=== PATIENT | female | born 1970 | race Caucasian/White ===

== ENCOUNTER 2024-12-03 22:03 | Emergency (ER) | payer MEDICAID, SELFPAY ==
[2024-12-03 22:05] VITALS: BMI 22.7
[2024-12-03 22:30] VITALS: BP 115/70; PULSE 93; RESP 18; TEMP 36.9; O2SAT 95
--- NOTE | 2024-12-03 22:37 | EDNOTE_ITS ---
<Statement entered by Roberta Barger MD - 12/05/24 18:57> As co-signing physician, I was present and available for consult prn. I concur with the plan and care as documented by the midlevel provider. ED Wound/Laceration-RME/HPI General Chief Complaint: Wound/Laceration Stated Complaint: LAC TO TOP OF 2ND 3RD ADN 4TH FINGERS Time Seen by Provider: 12/03/24 22:36 Arrival date/time: 12/03/24 22:03 RME / HPI RME / HPI narrative: 54-year-old female patient was brought in for evaluation regarding multiple lacerations to the right fingers incidental happened few minutes prior to ER visit as laceration to the dorsal aspect of the 2nd, 3rd and 4th finger and palmar aspect of the 2nd and 4th finger severity mild. Patient is able to bend and extend the finger without any limitation. Patient will not tell me what happened. She does not want anyone in trouble. Denies any other complaints Related Data Allergies Allergy/AdvReac Type Severity Reaction Status Date / Time prochlorperazine Allergy Unknown IT MADE Verified 12/03/24 22:08 ME CLOSTRAPHOBIC Review of Systems Review of Systems Narrative Review of Systems: Review of system reviewed and within normal limits except mentioned in HPI ED Exam Narrative Physical exam: VITAL SIGNS: Reviewed. GENERAL APPEARANCE: Alert and interactive, follows commands, no acute distress, HEAD AND FACE: Non-traumatic. ENT: PERRL, pink conjunctivitis, eyelid no trauma, Mucous membrane moist. NECK: Supple, nontender, no nuchal rigidity. CHEST: No tenderness, no crepitus, no paradoxical movement, no retractions. LUNGS: Clear, well ventilated, symmetric, no rales, no wheezing, no ronchi, no stridor, good breath sounds bilaterally. HEART: Regular rate, regular rhythm, no murmur, no gallops. ABDOMEN: Soft, positive bowel sounds, nondistended, no guarding, nontender, no rebound, no masses, RECTAL: Deferred. GENITAL: Deferred. NEUROLOGICAL: Gross motor function intact sensory function intact, Appropriate for age. MUSCULOSKELETAL: low back nontender, full range of motion. EXTREMITIES: 1 cm laceration, dorsal aspect of the 2nd, 3rd and 4th right finger proximal phalanx and 1 cm laceration also plantar aspect 2nd and 4th right finger proximal phalanx, full range of motion. SKIN: Color pink, dry, no rash, no abrasions, no contusions. LYMPHATICS: Deferred. Course Quality Measures none Orders Category Date Time Status XR hand RT 2V Stat Exams 12/03/24 22:37 Taken Ibuprofen Tab [Motrin Tab] Med 12/03/24 22:36 Discontinued 800 mg PO X1 ONE TET,DIP/PERT AC (Adult)-Tdap [Boostrix Adult (Tdap) Med 12/03/24 22:36 Discontinued Vacc] 0.5 ml IMI .ONCE ONE Vital Signs Vital signs: Vital Signs Temperature 98.4 F 12/03/24 22:30 Pulse Rate 93 12/03/24 22:30 Respiratory Rate 18 12/03/24 22:30 Blood Pressure 115/70 12/03/24 22:30 Pulse Oximetry (%) 95 12/03/24 22:30 Oxygen Delivery Method Room Air 12/03/24 22:30 PROCEDURES: Laceration Laceration 1: Site: other (Multiple fingers) Size (cm): 1 Description: linear Depth: simple, single layer Local Anesthetic: lidocaine 1% Amount of anesthesia used (mL): 7 Pre-repair: wound explored, irrigated extensively and deep structures intact Skin layer closed with: nylon Suture size (cm): 5-0 Number of sutures: 11 Technique: simple, interrupted Wound / Laceration MDM Narrative MDM Narrative:: 54-year-old female patient was brought in for evaluation regarding multiple lacerations to the fingers incidental happened few minutes prior to ER visit as laceration to the dorsal aspect of the 2nd, 3rd and 4th finger and palmar aspect of the 2nd and 4th finger severity mild. Patient is able to bend and extend the finger without any limitation. Patient will not tell me what happened. She does not want anyone in trouble. Denies any other complaints X-ray of the finger came back unremarkable. Results discussed with the patient. Repair and suturing was done See procedure notes Patient received Boostrix Patient data External records reviewed:: None Clinical information provided by:: family Social determinants that could affect healthcare access:: alcohol use Patient has the following chronic illnesses:: None How is presenting disease/condition affected by chronic disease/condition?: no chronic disease Evaluation data The following diagnostics were reviewed and interpreted by me:: radiology exam(s) Lab and/or radiology exams considered but not ordered:: None Interpretation Summary: See results MDM Medications / Prescriptions Medications or Prescriptions considered but not ordered:: None Medication administrations:: Medication Administration History Discontinued Medications Diphtheria/Tetanus/Acell Pertussis (Diphth,Pertuss(Acell),Tet Vac 0.5 Ml Syr- Adult) 0.5 ml IMi .ONCE ONE Stop: 12/03/24 22:37 Ibuprofen (Ibuprofen Tab 400 Mg Tablet) 800 mg PO X1 ONE Stop: 12/03/24 22:37 Boostrix and Motrin Consultations Consultation(s) initiated? (list below): No Diagnosis Wound Differential Diagnosis: laceration, abrasion and avulsion of skin Most likely diagnosis given after review of the tests above:: Multiple finger lacerations Admission Indicated Admission indicated?: not indicated Admission Request Was there a request for admission?: No Disposition Plan Disposition Plan: Discharge Discharge Attestation Discharge Attestation: The patient and all family members were given an opportunity to ask questions and understood the discharge instructions. Discharge instructions specifically effects, indications for sooner follow up or return to the emergency department, and the expected course of current diagnosis. Patient condition: Stable Discharge Plan Plan Patient Disposition: HOME (Self Care) Discharge Disposition comment: Stable Prescriptions/Referrals Referrals: No Primary/Family,Physician [Primary Care Provider] - In 1 week Problem List Clinical Impression: Laceration of multiple sites of right hand and fingers Patient/Caregiver Discharge Instructions Discharge Activity: activity as tolerated Education Materials: ED Laceration, Hand: All Closures Additional Instructions: Thank you for the opportunity for serving you today. You are stable for discharged . You are advised to: Follow-up with your PCP in 1 to 2 days Return to ED for worsening of symptoms Increase oral fluids Take medication as prescribed Daily dressing with bacitracin as needed For removal of sutures in 10 days Print Language: Yemeni Stand Alone Forms: Jazmine Award Info., Patient Portal Info Letter PA/IWONA Supervising Physician RAMU/IWONA Supervising Physician: MD Bertha
--- NOTE | 2024-12-03 22:37 | XR_ITS ---
Examination: Right hand 2 views TECHNIQUE: AP lateral right hand 2 views. INDICATIONS: Laceration to the fingers today, finger pain. FINDINGS: Soft tissue air densities adjacent to the bases of the proximal phalanges third and fourth digits and adjacent to the distal third and fourth metacarpal carpals No fracture No opaque foreign bodies IMPRESSION: No opaque foreign bodies
[2024-12-03] MEDS: IBUPROFEN TAB 400 MG TABLET 800 MG PO (23:32)
[2024-12-03] MEDS: DIPHTH,PERTUSS(ACELL),TET VAC 0.5 ML SYR- ADULT IMi (23:34)
== END 2024-12-03 23:57 | disposition home or self-care (01) ==
PROVIDERS: Emergency Provider Emergency Medicine
DX: S61.411A Laceration without foreign body of right hand, initial encounter (principal); X58.XXXA Exposure to other specified factors, initial encounter; Z23 Encounter for immunization
CPT/HCPCS: 12002; 73120; 90471; 90715; 99283; A9270

== ENCOUNTER 2025-02-16 09:33 | Emergency (ER) | payer MEDICAID, SELFPAY ==
[2025-02-16 09:55] VITALS: BP 108/74; PULSE 88; RESP 17; TEMP 36.7; O2SAT 97
--- NOTE | 2025-02-16 10:06 | PD.EDUPEX ---
Upper Extremity Injury RME/HPI General Chief Complaint: Extremity Injury, Upper Stated Complaint: R) ELBOW SWELLING Time Seen by Provider: 02/16/25 09:48 Source: patient Arrival date/time: 02/16/25 09:33 54-year-old female with no known medical history presents to the emergency room with a chief complaint of right elbow swelling and bruising x 3 days. Patient denies any trauma Mode of arrival: ambulatory Limitations: no limitations Related Data Allergies Allergy/AdvReac Type Severity Reaction Status Date / Time prochlorperazine Allergy Unknown IT MADE Verified 02/16/25 09:36 ME CLOSTRAPHOBIC Review of Systems Review of Systems Systems Reviewed: All systems reviewed, normal except as documented Constitutional Constitutional: Reports system reviewed and no additional complaints, except as documented, Denies fatigue, Denies fever(s), Denies headache(s) and Denies weakness Eyes Eyes: Reports system reviewed and no additional complaints, except as documented, Denies blurry vision and Denies change in vision ENT Ears, Nose, Mouth, and Throat: Reports system reviewed and no additional complaints, except as documented, Denies otalgia, Denies headache(s), Denies nasal congestion, Denies throat swelling and Denies vertigo Cardiovascular Cardiovascular: Reports system reviewed and no additional complaints, except as documented, Denies chest pain, Denies dyspnea and Denies dyspnea on exertion Respiratory Respiratory: Reports system reviewed and no additional complaints, except as documented, Denies chest congestion, Denies cough, Denies dyspnea, Denies dyspnea on exertion and Denies wheezing Gastrointestinal Gastrointestinal: Reports system reviewed and no additional complaints, except as documented, Denies abdominal pain, Denies cramping, Denies nausea and Denies vomiting Genitourinary Genitourinary: Reports system reviewed and no additional complaints, except as documented Musculoskeletal Musculoskeletal: Reports system reviewed and no additional complaints, except as documented, Reports arthralgias, Denies back pain and Reports joint swelling Integumentary/Breasts Skin/Breast: Reports system reviewed and no additional complaints, except as documented and Denies wounds Neurologic Neurologic: Reports system reviewed and no additional complaints, except as documented, Denies confusion, Denies headache(s), Denies lack of coordination, Denies vertigo and Denies weakness Psychiatric Psychiatric: Reports system reviewed and no additional complaints, except as documented, Denies anxiety, Denies confusion, Denies depression, Denies paranoia, Denies suicidal ideation and Denies tactile hallucinations Endocrine Endocrine: Reports system reviewed and no additional complaints, except as documented and Denies fatigue Hematologic/Lymphatic Hematologic/Lymphatic: Reports system reviewed and no additional complaints, except as documented and Denies lymphadenopathy Allergic/Immunologic Allergic/Immunologic: Reports system reviewed and no additional complaints, except as documented, Denies throat swelling, Denies urticaria and Denies wheezing ED Exam General Limitations: Present no limitations General appearance: Present alert and in no apparent distress Head Head exam: Present atraumatic Eye Eye exam: Present normal appearance, PERRL and EOMI ENT ENT exam: Present normal exam, normal oropharynx and mucous membranes moist Neck Neck exam: Present normal inspection, full ROM and trachea midline Chest Chest inspection: Present normal inspection and symmetric chest wall rise Respiratory Respiratory exam: Present normal lung sounds bilaterally Cardiovascular Cardiovascular exam: Present regular rate, normal rhythm and normal heart sounds Abdominal Exam Abdominal exam: Present soft and normal bowel sounds Extremities Exam Extremities exam: Present normal inspection and full ROM Expanded Upper Extremity Exam Shoulder exam: Present normal inspection Arm exam: Present normal inspection Elbow exam: Present full ROM, tenderness, swelling and effusion Forearm/Wrist exam: Present normal inspection Hand exam: Present normal inspection Back Exam Back exam: Present normal inspection and full ROM Neurological Exam Neurological exam: Present alert, oriented X3 and CN II-XII intact Psychiatric Psychiatric exam: Present normal affect and normal mood Skin Skin exam: Present warm, dry, intact and normal color Course Quality Measures none Orders Category Date Time Status US extremity nonvascular LMTD Stat Exams 02/16/25 10:37 Completed XR elbow comp RT min 3V Stat Exams 02/16/25 10:17 Completed CBC Stat Lab 02/16/25 10:40 Completed CMP [Comprehensive Metabolic Panel] Stat Lab 02/16/25 10:40 Completed Uric Acid Stat Lab 02/16/25 10:40 Completed Ketorolac Inj [Toradol Inj] Med 02/16/25 10:06 Discontinued 30 mg IM X1 ONE Vital Signs Vital signs: Vital Signs Temperature 98.0 F 02/16/25 09:55 Pulse Rate 88 02/16/25 09:55 Respiratory Rate 17 02/16/25 09:55 Blood Pressure 108/74 02/16/25 09:55 Pulse Oximetry (%) 97 02/16/25 09:55 Oxygen Delivery Method Room Air 02/16/25 09:55 Extremity Injury MDM Narrative MDM Narrative:: 54-year-old female with no known medical history presents to the emergency room with a chief complaint of right elbow swelling and bruising x 3 days. Patient denies any trauma Patient is hemodynamically stable and in no apparent distress. She is not tachycardic not tachypneic afebrile and there are no signs of any sepsis Physical examination shows some swelling to the right elbow. Patient states the swelling was significantly worse yesterday but states it began to decrease and now she is having bruising to the upper part of her forearm. X-ray of the elbow is negative for any acute fracture or dislocation and one of the differentials is olecranon bursitis. An ultrasound was completed and the patient has some swelling to the elbow and the findings are consistent with olecranon bursitis The patient is not having any pain or tenderness to the area just having swelling Patient was discharged and educated to follow-up with primary care provider in the next 24 to 48 hours and return to the emergency room for any evidence of worsening signs or symptoms Patient data External records reviewed:: [facility] previous records Clinical information provided by:: patient Social determinants that could affect healthcare access:: none Patient has the following chronic illnesses:: No chronic illness How is presenting disease/condition affected by chronic disease/condition?: no chronic disease Evaluation data The following diagnostics were reviewed and interpreted by me:: lab results and radiology exam(s) Lab and/or radiology exams considered but not ordered:: Labs and radiology exams considered and ordered Interpretation Summary: X-ray elbow-FINDINGS: Soft tissue swelling posterior to the olecranon No fracture or dislocation No elbow effusion IMPRESSION: Consider ultrasound soft tissue elbow follow-up to confirm olecranon bursitis. Ultrasound elbow-FINDINGS: Soft tissue mass, complex bursitis cyst versus abscess in the soft tissue posterior to the olecranon 3.3 x 1.1 x 3.3 cm IMPRESSION: Complex soft tissue mass, olecranon bursitis/and cyst versus abscess in the soft tissue posterior to the olecranon as above Medications / Prescriptions Medications or Prescriptions considered but not ordered:: Medication given Medication administrations:: Medication Administration History Discontinued Medications Ketorolac Tromethamine (Ketorolac Inj 60 Mg/2 Ml Vial) 30 mg IM X1 ONE Stop: 02/16/25 10:07 Last Admin: 02/16/25 10:19 Dose: Not Given Documented By: CHINTAN Non-Admin Reason: Patient Refused Medication given Consultations Consultation(s) initiated? (list below): No Diagnosis Upper Extremity Injury Differential Diagnosis: other (Olecranon bursitis/septic bursitis/elbow fracture) Most likely diagnosis given after review of the tests above:: Olecranon bursitis Admission Indicated Admission indicated?: not indicated Admission Request Was there a request for admission?: No Disposition Plan Disposition Plan: Discharge Discharge Attestation Discharge Attestation: The patient and all family members were given an opportunity to ask questions and understood the discharge instructions. Discharge instructions specifically effects, indications for sooner follow up or return to the emergency department, and the expected course of current diagnosis. Patient condition: Stable Discharge Plan Plan Patient Disposition: HOME (Self Care) Discharge Disposition comment: Stable Prescriptions/Referrals Referrals: No Primary/Family,Physician [Primary Care Provider] - In 1 week Problem List Clinical Impression: Olecranon bursitis of right elbow Patient/Caregiver Discharge Instructions Education Materials: What Is Bursitis?, ED Bursitis, ED Bursitis Elbow Olecranon Additional Instructions: Please follow-up with your primary care provider in the next 24 to 48 hours Your findings are consistent with bursitis. This is inflammation of the bursa in your elbow. You can use warm compresses to help the swelling go away For any evidence of worsening symptoms please return to the emergency room immediately Print Language: Italian Stand Alone Forms: Jazmine Award Info., Patient Portal Info Letter RAMU/IWONA Supervising Physician RAMU/IWONA Supervising Physician: Dr. Ambrocio
--- NOTE | 2025-02-16 10:17 | XR_ITS ---
Examination: Right elbow 3 views Technique: Elbow AP, oblique, lateral 3 views Exam date and time: February 16, 2025 10:20 AM INDICATIONS: Right elbow swelling and pain beginning 3 days ago. FINDINGS: Soft tissue swelling posterior to the olecranon No fracture or dislocation No elbow effusion IMPRESSION: Consider ultrasound soft tissue elbow follow-up to confirm olecranon bursitis.
--- NOTE | 2025-02-16 10:37 | XR_ITS ---
Examination: Ultrasound soft tissue extremity right elbow TECHNIQUE: Grayscale sonographic images soft tissue right elbow INDICATIONS: Right elbow lump swelling redness 3 days Date and time: February 16, 2025 1114 hours FINDINGS: Soft tissue mass, complex bursitis cyst versus abscess in the soft tissue posterior to the olecranon 3.3 x 1.1 x 3.3 cm IMPRESSION: Complex soft tissue mass, olecranon bursitis/and cyst versus abscess in the soft tissue posterior to the olecranon as above
[2025-02-16 11:13] LABS: Basophils # (Auto) 0.1 Thou/mm3 (0.0-0.2); Basophils % (Auto) 1 % (0-2.5); Eosinophils # (Auto) 0.3 Thou/mm3 (0.0-0.5); Eosinophils % (Auto) 3 % (0-10); Hematocrit 43.5 % (36.0-46.0); Hemoglobin 14.0 g/dL (12.0-16.0); Immature Granulocytes Auto 0.05 Thou/mm3 (0.00-0.00); Lymphocytes # (Auto) 2.4 Thou/mm3 (1.0-4.8); Lymphocytes % (Auto) 26 % (10-50); Mean Corpuscular HGB Conc 32.2 g/dl (31.0-37.0); Mean Corpuscular Hemoglobin 29.5 pg (25.0-35.0); Mean Corpuscular Volume 92 fL (80-100); Monocytes # (Auto) 0.8 Thou/mm3 (0.0-0.8); Monocytes % (Auto) 9 % (0-12); Neutrophils # (Auto) 5.6 Thou/mm3 (1.8-7.7); Neutrophils % (Auto) 62 % (37-80); Nucleated Red Blood Cell # 0.00 Thou/mm3 (0.00-0.00); Nucleated Red Blood Cell % 0 /100 WBC (0); Platelet Count 274 Thou/mm3 (140-440); RDW Standard Deviation 44.7 fL (36.4-46.3); Red Blood Count 4.75 Miln/mm3 (4.00-5.20); White Blood Count 9.2 Thou/mm3 (3.6-11.0)
[2025-02-16 11:23] LABS: Alanine Aminotransferase < 7 U/L (10-49); Albumin, Serum 4.4 gm/dL (3.5-5.0); Albumin/Globulin Ratio 1.8 (1.2-2.2); Alkaline Phosphatase 99 U/L (46-116); Anion Gap 7 (7-16); Aspartate Amino Transferase 28 U/L (0-34); BUN/Creatinine Ratio 18 Ratio (12-20); Bilirubin,Total 0.3 mg/dL (0.3-1.2); Blood Urea Nitrogen 18 mg/dL (9-23); Calcium 9.5 mg/dL (8.3-10.6); Calcium (Corrected) 9.5 mg/dL (8.5-10.1); Carbon Dioxide 29.0 mMol/L (20.0-31.0); Chloride 110 mMol/L (98-107); Creatinine (Component) 1.0 mg/dL (0.6-1.3); Estimated Creatinine Clearance 63.4 mL/min (>60); Globulin 2.4 gm/dL (2.3-3.5); Glucose 87 mg/dL (74-106); Osmolality,Calculated 291 (275-295); Potassium 4.0 mMol/L (3.4-5.1); Sodium 146 mMol/L (136-145); Total Protein 6.8 gm/dL (5.7-8.2); Uric Acid 5.9 mg/dL (3.1-7.8); eGFR > 60 See Note
== END 2025-02-16 12:38 | disposition home or self-care (01) ==
PROVIDERS: Emergency Provider Nurse Practitioner Family
DX: M70.21 Olecranon bursitis, right elbow (principal)
CPT/HCPCS: 36415; 73080; 76882; 80053; 84550; 85025; 99284